=== PATIENT | male | born 1945 | race Two or more races ===

== ENCOUNTER 2017-08-13 12:15 | Inpatient (IN) | payer OTHER ==
[2017-08-13] VITALS (15 sets, daily range): BP systolic 107–149; BP diastolic 41–96
[~2017-08-13] VITALS: Ht 172.7 cm; Wt 74.8 kg
[2017-08-13 13:15] LABS: Basophils # (auto) 0.1 uL; Eosinophils # (auto) 0 uL; Lymphocytes # (auto) 1.4 uL; Monocytes # (auto) 0.4 uL; Neutrophils # (auto) 7.7 uL; Neutrophils % (auto) 80.3 % (37.0-80.0); White Blood Cell 9.6 10^3/uL (4.4-10.8)
[2017-08-13 13:16] LABS: Basophils % (auto) 0.6 % (0.0-2.0); Hematocrit 23.5 % (41.0-53.0); Hemoglobin 7.3 g/dL (13.5-17.5); Lymphocytes % (auto) 14.7 % (10.0-50.0); Mean Corpuscular Hemoglobin 23.1 pg (28.0-32.0); Mean Corpuscular Volume 74.4 fL (80.0-100.0); Monocytes % (auto) 4.4 % (0.0-12.0); Platelet Count (auto) 232 10^3/uL (140-450); Red Blood Cells 3.15 10^6/uL (4.5-5.90)
[2017-08-13 13:22] LABS: Red Cell Distribution Width 22.1 % (11.8-14.3)
[2017-08-13 13:37] LABS: Albumin 3.6 g/dL (3.4-5.0); BUN/Creatinine Ratio 43.5; Bilirubin, Total 0.2 mg/dL (0.2-1.0); Calcium 8.4 mg/dL (8.5-10.1); Potassium 4.8 mmol/L (3.5-5.1); Total Protein 7.9 g/dL (6.4-8.2)
[2017-08-13] MEDS ORDERED: SODIUM CHLORIDE 0.9% 1,000 ML IVB ONE (13:52)
[2017-08-13] MEDS ORDERED: PANTOPRAZOLE 40 MG/10 ML VIAL IV ONE (14:00)
[2017-08-13 14:14] LABS: Magnesium 1.8 mg/dL (1.6-2.6)
[2017-08-13 14:16] LABS: INR 1.05 (0.9-1.15); Prothrombin Time 11.4 sec (9.37-12.3)
[2017-08-13] MEDS ORDERED: DEXTROSE (50%) 50ML SYRG IV PRN (14:30)
[2017-08-13] MEDS ORDERED: LORazepam 0.5 MG TAB PO PRN (14:30)
[2017-08-13] MEDS ORDERED: MORPHINE SULFATE 10 MG/ML INJ 1ML SDV IV PRN (14:30)
[2017-08-13] MEDS ORDERED: SODIUM CHLORIDE 0.9% 1,000 ML IV ONE (14:30)
[2017-08-13] MEDS ORDERED: MORPHINE SULF INJ 2 MG/ML SYRINGE 1ML IV PRN (14:30)
[2017-08-13] MEDS ORDERED: PROMETHAZINE HCL 25 MG/ML 1ML IV PRN (14:30)
[2017-08-13] MEDS ORDERED: NITROGLYCERIN 0.4 MG SL TAB SL PRN (14:30)
[2017-08-13 14:37] LABS: Hematocrit 23.5 % (41.0-53.0); Hemoglobin 7.2 g/dL (13.5-17.5)
[2017-08-13 14:51] LABS: Urine Bacteria NONE SEEN /hpf (None Seen); Urine Blood Negative /uL (Negative); Urine Specific Gravity 1.017 (1.001-1.035); Urine WBC 13 /hpf (0 - 3)
[2017-08-13] MEDS: ACCU-CHEK COMFORT CURVE STRIP VI SCH (18:32)
[2017-08-13] MEDS: InsuLIN REG 1unit/0.01ml Soln (100units/ml) SC SCH (18:32)
[2017-08-13] MEDS: SODIUM CHLORIDE 0.9% 1,000 ML IV SCH ×2 (18:47→22:35)
[2017-08-13] MEDS: metroNIDAZOLE 500MG/100ML 100 ML IV SCH (22:00)
[2017-08-13] MEDS ORDERED: PANTOPRAZOLE 40 MG/10 ML VIAL IV SCH (22:00)
[2017-08-13] MEDS: MORPHINE SULFATE 4 MG/ML SYR/VIAL IV PRN (22:36)
[2017-08-14] MEDS: ACCU-CHEK COMFORT CURVE STRIP VI SCH ×3 (00:23→12:27)
[2017-08-14 00:28] VITALS: BP 120/66
[2017-08-14 02:03] LABS: Hematocrit 30.9 % (41.0-53.0); Hemoglobin 9.8 g/dL (13.5-17.5)
[2017-08-14 05:44] LABS: Basophils # (auto) 0.1 uL; Eosinophils # (auto) 0.1 uL; Hemoglobin 10.2 g/dL (13.5-17.5); Neutrophils # (auto) 8.7 uL
[2017-08-14 05:49] LABS: Basophils % (auto) 0.8 % (0.0-2.0); Eosinophils % (auto) 0.5 % (0.0-7.0); Hematocrit 30.6 % (41.0-53.0); Lymphocytes # (auto) 1.4 uL; Lymphocytes % (auto) 12.7 % (10.0-50.0); Mean Corpuscular Hemoglobin 27.3 pg (28.0-32.0); Mean Corpuscular Hgb Conc. 33.4 g/dL (32.0-36.0); Mean Corpuscular Volume 81.7 fL (80.0-100.0); Monocytes # (auto) 0.7 uL; Monocytes % (auto) 6.3 % (0.0-12.0); Neutrophils % (auto) 79.7 % (37.0-80.0); Platelet Count (auto) 153 10^3/uL (140-450); Red Blood Cells 3.74 10^6/uL (4.5-5.90); White Blood Cell 10.9 10^3/uL (4.4-10.8)
[2017-08-14 06:02] LABS: Red Cell Distribution Width 20.9 % (11.8-14.3)
[2017-08-14] MEDS: metroNIDAZOLE 500MG/100ML 100 ML IV SCH (06:04)
[2017-08-14 06:15] LABS: Albumin 3.1 g/dL (3.4-5.0); BUN/Creatinine Ratio 41.1; Bilirubin, Total 0.7 mg/dL (0.2-1.0); Calcium 7.7 mg/dL (8.5-10.1); Total Protein 6.7 g/dL (6.4-8.2)
[2017-08-14] MEDS: MORPHINE SULFATE 4 MG/ML SYR/VIAL IV PRN (06:20)
[2017-08-14] MEDS: InsuLIN REG 1unit/0.01ml Soln (100units/ml) SC SCH ×3 (06:37→12:00)
[2017-08-14] MEDS: SODIUM CHLORIDE 0.9% 1,000 ML IV SCH (07:39)
[2017-08-14] MEDS ORDERED: SODIUM CHLORIDE LOCK 10 ML ONE (08:27)
[2017-08-14] MEDS ORDERED: EPINEPHrine HCL 1 MG/10 ML SYRG ONE (08:27)
[2017-08-14] MEDS ORDERED: diphenhdrAMINE HCL 50 MG/1 ML VL ONE (08:28)
[2017-08-14] MEDS ORDERED: BENZOCAINE (DENTAL) 20 % SPRAY 60ML MT ONE (08:29)
[2017-08-14] MEDS: fentaNYL CITRATE 100 MCG/2 ML VL ONE ×2 (09:12→09:16)
[2017-08-14] MEDS: MIDAZOLAM HCL 5 MG/ML-1ML VIAL ONE ×2 (09:12→09:16)
[2017-08-14] MEDS ORDERED: LEVOFLOXACIN 500MG 100 ML IV SCH (10:00)
[2017-08-14] MEDS ORDERED: PANTOPRAZOLE 40 MG TAB PO SCH (10:00)
[2017-08-14] MEDS ORDERED: PANTOPRAZOLE 40 MG/10 ML VIAL IV SCH (10:00)
[2017-08-14] MEDS ORDERED: LIDOCAINE VISCOUS 2% 15ML UD ONE (10:41)
[2017-08-14 10:55] VITALS: BP 123/76
[2017-08-14 11:01] VITALS: BP 126/72
[2017-08-14] MEDS ORDERED: MORPHINE SULFATE 4 MG/ML SYR/VIAL IV PRN ×2 (19:45)
== END 2017-08-14 13:44 | disposition home or self-care (01) | DRG 377 ==
LOC: EDBD 12:15 → ER 12:15 → OVERFLOW 12:16
PROVIDERS: ADMIT Internal Medicine; ATTEND Internal Medicine Geriatric Medicine
PROC: 30233N1 Transfusion of Nonautologous Red Blood Cells into Peripheral Vein, Percutaneous Approach (ICD-10-PCS; 2017-08-13)
PROC: 0DB68ZX Excision of Stomach, Via Natural or Artificial Opening Endoscopic, Diagnostic (ICD-10-PCS; principal; 2017-08-14 09:08)
DX: K25.4 Chronic or unspecified gastric ulcer with hemorrhage (principal); N17.0 Acute kidney failure with tubular necrosis; D62 Acute posthemorrhagic anemia; E11.9 Type 2 diabetes mellitus without complications; I10 Essential (primary) hypertension; N40.0 Benign prostatic hyperplasia without lower urinary tract symptoms; F41.9 Anxiety disorder, unspecified; I70.0 Atherosclerosis of aorta; K57.30 Diverticulosis of large intestine without perforation or abscess without bleeding; Z82.49 Family history of ischemic heart disease and other diseases of the circulatory system; Z90.49 Acquired absence of other specified parts of digestive tract
CPT/HCPCS: 36415; 43239; 71045; 74176; 80053; 81001; 82150; 82962; 83036; 83690; 83735; 85014; 85018; 85025; 85045; 85610; 85730; 86850; 86900; 86901; 86920; 93005; 94761; 96360; 96361; C9113; G0378; J1956; J2250; J3490

== ENCOUNTER 2022-12-05 17:00 | Inpatient (IN) | payer OTHER ==
[~2022-12-05] VITALS: Ht 180.3 cm; Wt 143.2 kg
[2022-12-05 18:08] LABS: Eosinophils # (auto) 0.1 10 ^3/uL (0-0.8); Eosinophils % (auto) 1.1 % (0.0-7.0); Hemoglobin 9.7 g/dL (13.5-17.5); Lymphocytes # (auto) 1.4 10 ^3/uL (0.4-5.4); Monocytes # (auto) 0.5 10 ^3/uL (0-1.3); Red Cell Distribution Width 18.8 % (11.8-14.3)
[2022-12-05 18:10] LABS: Basophils # (auto) 0.1 10 ^3/uL (0-0.2); Basophils % (auto) 1.5 % (0.0-2.0); Hematocrit 30.9 % (41.0-53.0); Lymphocytes % (auto) 17.9 % (10.0-50.0); Mean Corpuscular Hgb Conc. 31.6 g/dL (32.0-36.0); Mean Corpuscular Volume 79.2 fL (80.0-100.0); Monocytes % (auto) 6.4 % (0.0-12.0); Neutrophils # (auto) 5.6 10 ^3/uL (1.6-8.6); Neutrophils % (auto) 73.1 % (37.0-80.0); White Blood Cell 7.7 10^3/uL (4.4-10.8)
[2022-12-05] MEDS ORDERED: ADENOSINE 6 MG/2 ML INJ IV ONE ×4 (18:21→18:30)
[2022-12-05 18:33] LABS: Calcium 8.3 mg/dL (8.5-10.1); Potassium 4.7 mmol/L (3.5-5.1)
[2022-12-05 18:38] LABS: Albumin 3.4 g/dL (3.4-5.0); BUN/Creatinine Ratio 7.4 (10.0-20.0); Bilirubin, Total 0.4 mg/dL (0.2-1.0); Magnesium 1.9 mg/dL (1.6-2.6); Total Protein 7.5 g/dL (6.4-8.2)
[2022-12-05] MEDS ORDERED: dilTIAZem 125mg/125ml BAG KIT 100 ML IV SCH (18:45)
[2022-12-05] MEDS ORDERED: fentaNYL CITRATE 100 MCG/2 ML VL IV ONE (19:15)
[2022-12-05] MEDS ORDERED: DOCUSATE SOD 100 MG CAP PO PRN (21:30)
[2022-12-05] MEDS ORDERED: ONDANSETRON HCL 4 MG/2 ML VIAL IV PRN (21:30)
[2022-12-05] MEDS ORDERED: IBUPROFEN 600 MG TAB PO PRN (21:30)
[2022-12-05] MEDS ORDERED: DEXTROSE (50%) 50ML SYRG IV PRN (21:30)
[2022-12-05] MEDS: InsuLIN REG 1unit/0.01ml Soln (100units/ml) SC SCH (22:00)
[2022-12-05] MEDS: ACCU-CHEK COMFORT CURVE STRIP VI SCH (22:00)
[2022-12-05] MEDS: METOPROLOL TARTRATE 25 MG TAB PO SCH (23:03)
[2022-12-05] MEDS: HEPARIN SODIUM (PORCINE) 5000 UNITS/ML 1ML VIAL SC SCH (23:05)
[2022-12-05] MEDS: SODIUM CHLORIDE 0.9% 1,000 ML IV SCH (23:10)
[2022-12-05] MEDS ORDERED: NITROGLYCERIN 0.4 MG SL TAB SL PRN (23:15)
[2022-12-05] MEDS ORDERED: MORPHINE SULFATE INJ 2 MG/ml SYRG IV PRN (23:15)
[2022-12-05] MEDS ORDERED: AZITHROMYCIN 500MG/ 250ML 250 ML IV ONE (23:15)
[2022-12-06] VITALS (28 sets, daily range): BP systolic 64–151; BP diastolic 33–113
[2022-12-06 01:18] LABS: BUN/Creatinine Ratio 9.1 (10.0-20.0); Potassium 4.6 mmol/L (3.5-5.1)
[2022-12-06] MEDS ORDERED: TEMAZEPAM 15 MG CAP PO PRN (01:45)
[2022-12-06] MEDS ORDERED: CALCIUM GLUC 1,000mg/50ml-NS 50 ML IV ONE (03:15)
[2022-12-06] MEDS ORDERED: SODIUM CHLORIDE 0.9% 1,000 ML IV ONE ×2 (03:30→11:00)
[2022-12-06] MEDS ORDERED: IOHEXOL 350 MG/ML 100ML IJ ONE (03:55)
[2022-12-06] MEDS ORDERED: NOREPINEPHRINE 8 MG/250ML KIT 250 ML IV SCH (04:45)
[2022-12-06] MEDS: SODIUM CHLORIDE 0.9% 1,000 ML IV SCH ×2 (04:50→23:21)
[2022-12-06] MEDS: HYDROcodone-ACET 5/325MG TAB PO PRN ×2 (05:53→21:45)
[2022-12-06 06:00] LABS: Urine Bacteria FEW /hpf (None Seen); Urine Blood Negative /uL (Negative); Urine Mucus FEW (None Seen); Urine Specific Gravity 1.019 (1.001-1.035); Urine WBC 1 /hpf (0 - 3)
[2022-12-06 06:11] LABS: Alcohol, Urine < 3.0 mg/dL (0-10); Amphetamine Screen, Urine NEGATIVE (NEGATIVE); Barbiturate Scree,Urine NEGATIVE (NEGATIVE); Benzodiazephine Screen, Urine NEGATIVE (NEGATIVE); Cannabinoid Screen, Urine NEGATIVE (NEGATIVE); Cocaine Screen, Urine NEGATIVE (NEGATIVE); Phencyclidine Screen, Urine NEGATIVE (NEGATIVE)
[2022-12-06 06:19] LABS: Opiate Scree,Urine POSITIVE (NEGATIVE)
[2022-12-06 06:27] LABS: Calcium 7.3 mg/dL (8.5-10.1)
[2022-12-06 06:33] LABS: Albumin 2.8 g/dL (3.4-5.0); BUN/Creatinine Ratio 7.6 (10.0-20.0); Bilirubin, Total 0.7 mg/dL (0.2-1.0); Total Protein 6.5 g/dL (6.4-8.2)
[2022-12-06 06:45] LABS: Potassium 6.1 mmol/L (3.5-5.1)
[2022-12-06 07:18] LABS: Basophils # (auto) 0.1 10 ^3/uL (0-0.2); Eosinophils # (auto) 0 10 ^3/uL (0-0.8); Hemoglobin 8.8 g/dL (13.5-17.5); Monocytes # (auto) 0.8 10 ^3/uL (0-1.3); Nucleated Red Blood Cells % 0.1 %
[2022-12-06 07:20] LABS: Basophils % (auto) 0.5 % (0.0-2.0); Hematocrit 29.1 % (41.0-53.0); Lymphocytes % (auto) 18.8 % (10.0-50.0); Mean Corpuscular Hemoglobin 25.7 pg (28.0-32.0); Mean Corpuscular Hgb Conc. 30.4 g/dL (32.0-36.0); Mean Corpuscular Volume 84.4 fL (80.0-100.0); Monocytes % (auto) 7.8 % (0.0-12.0); Neutrophils # (auto) 7.8 10 ^3/uL (1.6-8.6); Neutrophils % (auto) 72.9 % (37.0-80.0); Red Blood Cells 3.45 10^6/uL (4.5-5.90); Red Cell Distribution Width 19.5 % (11.8-14.3); White Blood Cell 10.7 10^3/uL (4.4-10.8)
[2022-12-06] MEDS: InsuLIN REG 1unit/0.01ml Soln (100units/ml) SC SCH ×4 (07:20→21:58)
[2022-12-06] MEDS: ACCU-CHEK COMFORT CURVE STRIP VI SCH ×4 (07:20→21:56)
[2022-12-06 09:52] LABS: Basophils # (auto) 0.1 10 ^3/uL (0-0.2); Eosinophils # (auto) 0 10 ^3/uL (0-0.8); Eosinophils % (auto) 0.1 % (0.0-7.0); Hemoglobin 8.9 g/dL (13.5-17.5); Lymphocytes # (auto) 1.3 10 ^3/uL (0.4-5.4); Monocytes # (auto) 0.6 10 ^3/uL (0-1.3)
[2022-12-06 09:54] LABS: Basophils % (auto) 0.6 % (0.0-2.0); Hematocrit 29.7 % (41.0-53.0); Lymphocytes % (auto) 13.2 % (10.0-50.0); Mean Corpuscular Hemoglobin 25.4 pg (28.0-32.0); Mean Corpuscular Volume 84.7 fL (80.0-100.0); Neutrophils # (auto) 7.6 10 ^3/uL (1.6-8.6); Neutrophils % (auto) 80.1 % (37.0-80.0); Nucleated Red Blood Cells % 0.1 %; White Blood Cell 9.5 10^3/uL (4.4-10.8)
[2022-12-06 10:04] LABS: Albumin 2.9 g/dL (3.4-5.0); BUN/Creatinine Ratio 7.3 (10.0-20.0); Bilirubin, Total 0.7 mg/dL (0.2-1.0); Calcium 6.9 mg/dL (8.5-10.1); Total Protein 6.9 g/dL (6.4-8.2)
[2022-12-06 10:05] LABS: Red Cell Distribution Width 20.1 % (11.8-14.3)
[2022-12-06 10:11] LABS: Potassium 6.5 mmol/L (3.5-5.1)
[2022-12-06] MEDS: AZITHROMYCIN 500MG/ 250ML 250 ML IV SCH (10:15)
[2022-12-06] MEDS: METOPROLOL TARTRATE 25 MG TAB PO SCH (10:16)
[2022-12-06] MEDS: FAMOTIDINE (10MG/ML) 2ML VL IV SCH (10:16)
[2022-12-06] MEDS: HEPARIN SODIUM (PORCINE) 5000 UNITS/ML 1ML VIAL SC SCH ×2 (10:20→21:55)
[2022-12-06] MEDS ORDERED: ASPirin 81 mg TAB PO ONE (10:45)
[2022-12-06] MEDS ORDERED: AMIODARONE HCL 150 MG in D5W 5% 100 ML IV ONE (10:45)
[2022-12-06] MEDS ORDERED: InsuLIN REG 1unit/0.01ml Soln (100units/ml) IV ONE (10:45)
[2022-12-06] MEDS ORDERED: ALBUTEROL SULF 2.5 MG/0.5ML(0.5%) NEB SOLN NEB ONE (10:45)
[2022-12-06] MEDS ORDERED: DEXTROSE (50%) 50ML SYRG IV ONE (10:45)
[2022-12-06] MEDS ORDERED: SODIUM BICARBONATE 8.4% INJ 50ML SYRINGE IV ONE (10:45)
[2022-12-06] MEDS ORDERED: AMIODARONE 450mg/250ml AE 250 ML IV SCH (11:00)
[2022-12-06] MEDS ORDERED: DEXTROSE 10% 250 ML Bag IV ONE (11:30)
[2022-12-06] MEDS: SODIUM CHLORIDE 0.9% 1,000 ML IV ONE ×2 (11:37→11:50)
[2022-12-06] MEDS: SODIUM ZIRCONIUM CYCL 10 GM PAK PO SCH ×3 (11:51→21:42)
[2022-12-06 12:33] LABS: Magnesium 1.8 mg/dL (1.6-2.6)
[2022-12-06] MEDS ORDERED: NOREPINEPHRINE 8 MG/250ML KIT 250 ML IV ONE (13:24)
[2022-12-06] MEDS: NOREPINEPHRINE 8 MG/250ML KIT 250 ML IV SCH (13:31)
[2022-12-06] MEDS ORDERED: MAGNESIUM SULFATE 1GM/100ML 100 ML IV ONE (13:45)
[2022-12-06 15:11] LABS: Calcium 7.2 mg/dL (8.5-10.1)
[2022-12-06] MEDS: AMIODARONE 450mg/250ml AE 250 ML IV SCH ×2 (17:47→23:19)
[2022-12-06] MEDS ORDERED: SUCR1SUS5 PO (18:09)
[2022-12-06] MEDS ORDERED: DOXA1TAB41 PO (18:09)
[2022-12-06] MEDS ORDERED: MELO7.5T7 PO (18:09)
[2022-12-06] MEDS ORDERED: LISI2.5T47 PO (18:09)
[2022-12-06] MEDS ORDERED: METF-370 PO (18:09)
[2022-12-06] MEDS ORDERED: GABA-339 PO (18:09)
[2022-12-06] MEDS ORDERED: DONE1TAB88 PO (18:09)
[2022-12-06] MEDS ORDERED: HALOPERIDOL LACTATE 5 MG/ML INJ VIAL IM PRN (20:00)
[2022-12-07] VITALS (41 sets, daily range): BP systolic 108–190; BP diastolic 43–133
[2022-12-07] MEDS: ACCU-CHEK COMFORT CURVE STRIP VI SCH ×4 (06:10→22:03)
[2022-12-07] MEDS: InsuLIN REG 1unit/0.01ml Soln (100units/ml) SC SCH ×4 (06:11→21:54)
[2022-12-07] MEDS: SODIUM ZIRCONIUM CYCL 10 GM PAK PO SCH (06:16)
[2022-12-07] MEDS: HYDROcodone-ACET 5/325MG TAB PO PRN ×3 (06:22→20:25)
[2022-12-07 07:08] LABS: Basophils # (auto) 0 10 ^3/uL (0-0.2); Eosinophils # (auto) 0 10 ^3/uL (0-0.8); Lymphocytes # (auto) 1.1 10 ^3/uL (0.4-5.4); Mean Corpuscular Hemoglobin 25.8 pg (28.0-32.0); Monocytes # (auto) 0.6 10 ^3/uL (0-1.3); Monocytes % (auto) 8.5 % (0.0-12.0); Nucleated Red Blood Cells % 0.2 %
[2022-12-07 07:11] LABS: Basophils % (auto) 0.4 % (0.0-2.0); Eosinophils % (auto) 0.7 % (0.0-7.0); Hematocrit 25.7 % (41.0-53.0); Lymphocytes % (auto) 16.4 % (10.0-50.0); Mean Corpuscular Hgb Conc. 31.1 g/dL (32.0-36.0); Mean Corpuscular Volume 82.9 fL (80.0-100.0); Neutrophils # (auto) 5.1 10 ^3/uL (1.6-8.6); Red Cell Distribution Width 19.8 % (11.8-14.3); White Blood Cell 6.9 10^3/uL (4.4-10.8)
[2022-12-07 07:49] LABS: BUN/Creatinine Ratio 11.8 (10.0-20.0); Potassium 4.6 mmol/L (3.5-5.1)
[2022-12-07 07:50] LABS: Albumin 2.7 g/dL (3.4-5.0); Bilirubin, Total 0.8 mg/dL (0.2-1.0); Total Protein 6.3 g/dL (6.4-8.2)
[2022-12-07] MEDS ORDERED: SODIUM CHLORIDE 0.9% 500 ML IV ONE (09:00)
[2022-12-07] MEDS ORDERED: DIGOXIN (250MCG/ML) 2 ML AMPULE IV ONE (09:00)
[2022-12-07] MEDS: AZITHROMYCIN 500MG/ 250ML 250 ML IV SCH (09:34)
[2022-12-07] MEDS: FAMOTIDINE (10MG/ML) 2ML VL IV SCH (09:34)
[2022-12-07] MEDS: ASPirin 81 mg TAB PO SCH (09:35)
[2022-12-07] MEDS: HEPARIN SODIUM (PORCINE) 5000 UNITS/ML 1ML VIAL SC SCH ×2 (09:37→21:54)
[2022-12-07] MEDS ORDERED: DIGOXIN 0.25 MG TAB PO ONE (09:45)
[2022-12-07] MEDS: NOREPINEPHRINE 8 MG/250ML KIT 250 ML IV SCH (13:30)
[2022-12-07] MEDS: AMIODARONE 450mg/250ml AE 250 ML IV SCH (16:33)
[2022-12-08] VITALS (42 sets, daily range): BP systolic 96–171; BP diastolic 43–95
[2022-12-08] MEDS: HYDROcodone-ACET 5/325MG TAB PO PRN ×3 (02:56→18:54)
[2022-12-08 04:07] LABS: Calcium 7.3 mg/dL (8.5-10.1); Potassium 4.6 mmol/L (3.5-5.1)
[2022-12-08 04:11] LABS: BUN/Creatinine Ratio 14.1 (10.0-20.0)
[2022-12-08] MEDS: ACCU-CHEK COMFORT CURVE STRIP VI SCH ×4 (06:19→21:17)
[2022-12-08] MEDS: InsuLIN REG 1unit/0.01ml Soln (100units/ml) SC SCH ×4 (06:20→21:26)
[2022-12-08] MEDS: SODIUM CHLORIDE 0.9% 1,000 ML IV SCH (06:24)
[2022-12-08] MEDS: AZITHROMYCIN 500MG/ 250ML 250 ML IV SCH (08:39)
[2022-12-08] MEDS: ASPirin 81 mg TAB PO SCH (08:39)
[2022-12-08] MEDS: SODIUM ZIRCONIUM CYCL 10 GM PAK PO SCH ×2 (08:41→10:00)
[2022-12-08] MEDS: FAMOTIDINE (10MG/ML) 2ML VL IV SCH (08:41)
[2022-12-08] MEDS: HEPARIN SODIUM (PORCINE) 5000 UNITS/ML 1ML VIAL SC SCH ×2 (08:56→21:15)
[2022-12-08 12:18] LABS: % Iron Saturation 8.4 % (20-55)
[2022-12-08] MEDS: GABAPENTIN 300 MG CAP PO SCH ×2 (12:26→21:16)
[2022-12-08] MEDS: METOPROLOL TARTRATE 25 MG TAB PO SCH ×2 (12:27→21:17)
[2022-12-08] MEDS: NOREPINEPHRINE 8 MG/250ML KIT 250 ML IV SCH (13:30)
[2022-12-08] MEDS: AMIODARONE 450mg/250ml AE 250 ML IV SCH (14:00)
[2022-12-08] MEDS: FERROUS SULFATE 325mg EC TAB PO SCH (18:50)
[2022-12-08] MEDS: DONEPEZIL HYDROCHLORIDE 5 MG TAB PO SCH (21:16)
[2022-12-08] MEDS: DOXAZOSIN MESYL 2 MG TAB PO SCH (21:16)
[2022-12-09] VITALS (43 sets, daily range): BP systolic 99–143; BP diastolic 41–71
[2022-12-09] MEDS: AMIODARONE 450mg/250ml AE 250 ML IV SCH (00:02)
[2022-12-09 04:52] LABS: BUN/Creatinine Ratio 18.4 (10.0-20.0); Calcium 7.6 mg/dL (8.5-10.1); Potassium 4.2 mmol/L (3.5-5.1)
[2022-12-09] MEDS: GABAPENTIN 300 MG CAP PO SCH ×3 (06:03→21:49)
[2022-12-09] MEDS: ACCU-CHEK COMFORT CURVE STRIP VI SCH ×4 (06:03→21:59)
[2022-12-09] MEDS: InsuLIN REG 1unit/0.01ml Soln (100units/ml) SC SCH ×4 (06:05→21:59)
[2022-12-09] MEDS: SODIUM ZIRCONIUM CYCL 10 GM PAK PO SCH (09:46)
[2022-12-09] MEDS: AZITHROMYCIN 500MG/ 250ML 250 ML IV SCH (09:47)
[2022-12-09] MEDS: FAMOTIDINE (10MG/ML) 2ML VL IV SCH (09:47)
[2022-12-09] MEDS: FERROUS SULFATE 325mg EC TAB PO SCH ×2 (09:47→17:13)
[2022-12-09] MEDS: ASPirin 81 mg TAB PO SCH (09:47)
[2022-12-09] MEDS: METOPROLOL TARTRATE 25 MG TAB PO SCH ×2 (09:47→22:00)
[2022-12-09] MEDS: HEPARIN SODIUM (PORCINE) 5000 UNITS/ML 1ML VIAL SC SCH ×2 (09:48→21:59)
[2022-12-09] MEDS: HYDROcodone-ACET 5/325MG TAB PO PRN ×3 (09:59→21:51)
[2022-12-09] MEDS: NOREPINEPHRINE 8 MG/250ML KIT 250 ML IV SCH (13:30)
[2022-12-09] MEDS ORDERED: AMIODARONE HCL 200 MG TAB PO ONE (17:30)
[2022-12-09] MEDS: DONEPEZIL HYDROCHLORIDE 5 MG TAB PO SCH (21:49)
[2022-12-09] MEDS: AMIODARONE HCL 200 MG TAB PO SCH (21:49)
[2022-12-09] MEDS: DOXAZOSIN MESYL 2 MG TAB PO SCH (21:49)
[2022-12-10] VITALS (22 sets, daily range): BP systolic 119–159; BP diastolic 25–108
[2022-12-10 04:31] LABS: Eosinophils # (auto) 0.1 10 ^3/uL (0-0.8); Hematocrit 24.7 % (41.0-53.0); Lymphocytes # (auto) 0.9 10 ^3/uL (0.4-5.4)
[2022-12-10 04:33] LABS: Basophils # (auto) 0.1 10 ^3/uL (0-0.2); Basophils % (auto) 1.2 % (0.0-2.0); Eosinophils % (auto) 2.6 % (0.0-7.0); Lymphocytes % (auto) 19.8 % (10.0-50.0); Mean Corpuscular Hemoglobin 26.1 pg (28.0-32.0); Mean Corpuscular Hgb Conc. 32.2 g/dL (32.0-36.0); Mean Corpuscular Volume 81.2 fL (80.0-100.0); Monocytes # (auto) 0.4 10 ^3/uL (0-1.3); Monocytes % (auto) 9.8 % (0.0-12.0); Neutrophils % (auto) 66.6 % (37.0-80.0); Nucleated Red Blood Cells % 0.2 %; Red Blood Cells 3.04 10^6/uL (4.5-5.90); White Blood Cell 4.5 10^3/uL (4.4-10.8)
[2022-12-10 04:34] LABS: Red Cell Distribution Width 20.3 % (11.8-14.3)
[2022-12-10] MEDS: InsuLIN REG 1unit/0.01ml Soln (100units/ml) SC SCH ×5 (06:02→22:00)
[2022-12-10] MEDS: ACCU-CHEK COMFORT CURVE STRIP VI SCH ×4 (06:02→22:00)
[2022-12-10] MEDS: GABAPENTIN 300 MG CAP PO SCH ×3 (06:02→22:24)
[2022-12-10] MEDS: HYDROcodone-ACET 5/325MG TAB PO PRN ×2 (10:29→22:25)
[2022-12-10 11:15] LABS: BUN/Creatinine Ratio 17.9 (10.0-20.0); Calcium 7.5 mg/dL (8.5-10.1); Potassium 3.9 mmol/L (3.5-5.1)
[2022-12-10] MEDS ORDERED: DIGOXIN 0.125 MG TAB PO ONE (11:15)
[2022-12-10] MEDS: HEPARIN SODIUM (PORCINE) 5000 UNITS/ML 1ML VIAL SC SCH ×2 (11:24→22:46)
[2022-12-10] MEDS: METOPROLOL TARTRATE 25 MG TAB PO SCH ×2 (11:25→22:25)
[2022-12-10] MEDS: ASPirin 81 mg TAB PO SCH (11:25)
[2022-12-10] MEDS: SODIUM ZIRCONIUM CYCL 10 GM PAK PO SCH (11:26)
[2022-12-10] MEDS: AZITHROMYCIN 500MG/ 250ML 250 ML IV SCH (11:26)
[2022-12-10] MEDS: FAMOTIDINE (10MG/ML) 2ML VL IV SCH (11:26)
[2022-12-10] MEDS: AMIODARONE HCL 200 MG TAB PO SCH ×2 (11:26→22:26)
[2022-12-10] MEDS: FERROUS SULFATE 325mg EC TAB PO SCH ×2 (11:26→18:42)
[2022-12-10] MEDS: NOREPINEPHRINE 8 MG/250ML KIT 250 ML IV SCH (13:30)
[2022-12-10] MEDS: DOXAZOSIN MESYL 2 MG TAB PO SCH (22:25)
[2022-12-10] MEDS: DONEPEZIL HYDROCHLORIDE 5 MG TAB PO SCH (22:25)
[2022-12-11] VITALS (22 sets, daily range): BP systolic 102–142; BP diastolic 36–65
[2022-12-11 05:10] LABS: BUN/Creatinine Ratio 19.6 (10.0-20.0); Potassium 3.4 mmol/L (3.5-5.1)
[2022-12-11] MEDS: GABAPENTIN 300 MG CAP PO SCH ×3 (05:35→21:58)
[2022-12-11] MEDS: ACCU-CHEK COMFORT CURVE STRIP VI SCH ×4 (05:35→21:59)
[2022-12-11] MEDS: InsuLIN REG 1unit/0.01ml Soln (100units/ml) SC SCH ×4 (05:35→21:59)
[2022-12-11] MEDS: METOPROLOL TARTRATE 25 MG TAB PO SCH ×2 (09:28→21:58)
[2022-12-11] MEDS: FAMOTIDINE (10MG/ML) 2ML VL IV SCH (09:28)
[2022-12-11] MEDS: ASPirin 81 mg TAB PO SCH (09:28)
[2022-12-11] MEDS: DIGOXIN 0.125 MG TAB PO SCH (09:29)
[2022-12-11] MEDS: AMIODARONE HCL 200 MG TAB PO SCH ×2 (09:29→21:58)
[2022-12-11] MEDS: FERROUS SULFATE 325mg EC TAB PO SCH ×2 (09:29→18:06)
[2022-12-11] MEDS: AZITHROMYCIN 500MG/ 250ML 250 ML IV SCH (09:30)
[2022-12-11] MEDS: HEPARIN SODIUM (PORCINE) 5000 UNITS/ML 1ML VIAL SC SCH ×2 (10:06→22:18)
[2022-12-11] MEDS ORDERED: POTASSIUM CHL 20 Meq TABLET PO ONE (11:15)
[2022-12-11] MEDS: HYDROcodone-ACET 5/325MG TAB PO PRN ×3 (14:20→22:00)
[2022-12-11] MEDS: DOXAZOSIN MESYL 2 MG TAB PO SCH (21:57)
[2022-12-11] MEDS: DONEPEZIL HYDROCHLORIDE 5 MG TAB PO SCH (21:58)
[2022-12-12] VITALS (8 sets, daily range): BP systolic 94–139; BP diastolic 54–70
[2022-12-12] MEDS: GABAPENTIN 300 MG CAP PO SCH ×3 (06:14→21:34)
[2022-12-12] MEDS: ACCU-CHEK COMFORT CURVE STRIP VI SCH ×4 (06:24→21:51)
[2022-12-12] MEDS: InsuLIN REG 1unit/0.01ml Soln (100units/ml) SC SCH ×4 (06:24→21:50)
[2022-12-12 06:34] LABS: Calcium 7.7 mg/dL (8.5-10.1); Potassium 3.5 mmol/L (3.5-5.1)
[2022-12-12 06:36] LABS: BUN/Creatinine Ratio 15.8 (10.0-20.0)
[2022-12-12] MEDS: FERROUS SULFATE 325mg EC TAB PO SCH ×2 (08:14→18:32)
[2022-12-12] MEDS: HYDROcodone-ACET 5/325MG TAB PO PRN ×2 (08:14→20:13)
[2022-12-12] MEDS: HEPARIN SODIUM (PORCINE) 5000 UNITS/ML 1ML VIAL SC SCH ×2 (09:55→21:50)
[2022-12-12] MEDS: FAMOTIDINE (10MG/ML) 2ML VL IV SCH (09:56)
[2022-12-12] MEDS: METOPROLOL TARTRATE 25 MG TAB PO SCH ×2 (09:56→21:36)
[2022-12-12] MEDS: ASPirin 81 mg TAB PO SCH (09:56)
[2022-12-12] MEDS: DIGOXIN 0.125 MG TAB PO SCH (09:56)
[2022-12-12] MEDS: AMIODARONE HCL 200 MG TAB PO SCH ×2 (09:57→21:36)
[2022-12-12 10:15] LABS: Basophils # (auto) 0 10 ^3/uL (0-0.2); Eosinophils # (auto) 0.2 10 ^3/uL (0-0.8); Lymphocytes # (auto) 0.9 10 ^3/uL (0.4-5.4); Monocytes # (auto) 0.4 10 ^3/uL (0-1.3); Nucleated Red Blood Cells % 0.6 %; White Blood Cell 4.5 10^3/uL (4.4-10.8)
[2022-12-12 10:17] LABS: Eosinophils % (auto) 3.7 % (0.0-7.0); Hematocrit 26.9 % (41.0-53.0); Hemoglobin 8.2 g/dL (13.5-17.5); Lymphocytes % (auto) 20.9 % (10.0-50.0); Mean Corpuscular Hemoglobin 25.6 pg (28.0-32.0); Mean Corpuscular Hgb Conc. 30.4 g/dL (32.0-36.0); Mean Corpuscular Volume 84.4 fL (80.0-100.0); Monocytes % (auto) 8.9 % (0.0-12.0); Neutrophils # (auto) 2.9 10 ^3/uL (1.6-8.6); Neutrophils % (auto) 65.5 % (37.0-80.0); Red Blood Cells 3.19 10^6/uL (4.5-5.90)
[2022-12-12] MEDS: DONEPEZIL HYDROCHLORIDE 5 MG TAB PO SCH (21:34)
[2022-12-12] MEDS: DOXAZOSIN MESYL 2 MG TAB PO SCH (21:35)
[2022-12-13] MEDS: GABAPENTIN 300 MG CAP PO SCH ×2 (05:42→15:05)
[2022-12-13] MEDS: InsuLIN REG 1unit/0.01ml Soln (100units/ml) SC SCH ×3 (05:44→19:04)
[2022-12-13] MEDS: ACCU-CHEK COMFORT CURVE STRIP VI SCH ×3 (05:45→19:03)
[2022-12-13 08:00] VITALS: BP 109/45
[2022-12-13] MEDS ORDERED: HEPARIN SODIUM (PORCINE) 5000 UNITS/ML 1ML VIAL ONE (09:25)
[2022-12-13] MEDS ORDERED: METO25TA5 PO (09:43)
[2022-12-13] MEDS ORDERED: AMIO200T33 PO (09:43)
[2022-12-13] MEDS ORDERED: DIGO0.12 PO (09:43)
[2022-12-13] MEDS: METOPROLOL TARTRATE 25 MG TAB PO SCH (09:44)
[2022-12-13] MEDS: ASPirin 81 mg TAB PO SCH (09:45)
[2022-12-13] MEDS: DIGOXIN 0.125 MG TAB PO SCH (09:45)
[2022-12-13] MEDS: FERROUS SULFATE 325mg EC TAB PO SCH ×2 (09:45→18:20)
[2022-12-13] MEDS: FAMOTIDINE (10MG/ML) 2ML VL IV SCH (09:46)
[2022-12-13] MEDS: AMIODARONE HCL 200 MG TAB PO SCH (09:46)
[2022-12-13] MEDS: HEPARIN SODIUM (PORCINE) 5000 UNITS/ML 1ML VIAL SC SCH (10:06)
[2022-12-13 12:00] VITALS: BP 148/56
[2022-12-13 16:00] VITALS: BP 145/72
[2022-12-13 21:25] VITALS: BP 135/60
== END 2022-12-13 22:00 | disposition home health service (06) | DRG 562 ==
LOC: ER 17:00 → TELE 23:21 → ICU WEST 12-06 15:02 → TELE-CENTR 12-12 11:52
PROVIDERS: ADMIT Nurse Practitioner Family; ATTEND Internal Medicine Geriatric Medicine
DX: S42.351A Displaced comminuted fracture of shaft of humerus, right arm, initial encounter for closed fracture (principal); N17.0 Acute kidney failure with tubular necrosis; I47.1 Supraventricular tachycardia; I13.0 Hypertensive heart and chronic kidney disease with heart failure and stage 1 through stage 4 chronic kidney disease, or unspecified chronic kidney disease; I50.22 Chronic systolic (congestive) heart failure; N18.30 Chronic kidney disease, stage 3 unspecified; E11.22 Type 2 diabetes mellitus with diabetic chronic kidney disease; E78.5 Hyperlipidemia, unspecified; E87.5 Hyperkalemia; E11.40 Type 2 diabetes mellitus with diabetic neuropathy, unspecified; F03.90 Unspecified dementia, unspecified severity, without behavioral disturbance, psychotic disturbance, mood disturbance, and anxiety; N40.0 Benign prostatic hyperplasia without lower urinary tract symptoms; Y93.01 Activity, walking, marching and hiking; G89.29 Other chronic pain; M54.9 Dorsalgia, unspecified; E11.65 Type 2 diabetes mellitus with hyperglycemia; D63.1 Anemia in chronic kidney disease; I48.91 Unspecified atrial fibrillation; W01.0XXA Fall on same level from slipping, tripping and stumbling without subsequent striking against object, initial encounter; Z87.11 Personal history of peptic ulcer disease; Z79.84 Long term (current) use of oral hypoglycemic drugs; Y93.89 Activity, other specified; Y92.89 Other specified places as the place of occurrence of the external cause; Y99.8 Other external cause status
CPT/HCPCS: 36415; 71045; 71101; 71275; 73030; 73060; 73070; 80048; 80053; 80061; 80162; 80307; 81001; 82270; 82728; 82962; 83036; 83540; 83550; 83605; 83735; 83880; 84132; 84443; 84484; 85025; 85379; 86850; 86900; 86901; 87081; 93005; 93306; 93970; 94640; 96365; 96366; 96367; 96375; 97110; 97116; 97163; 97530; 99291; G0378; J0153; J1815; J2405; J3490; J7060

== ENCOUNTER 2024-09-23 14:02 | Emergency (ER) | payer OTHER ==
[~2024-09-23] VITALS: Ht 180.3 cm; Wt 70.7 kg
[~2024-09-23 14:02] MED LIST: AMIO200T33 PO; DIGO0.12 PO; DONE1TAB88 PO; DOXA1TAB41 PO; GABA-339 PO; LISI2.5T47 PO; MELO7.5T7 PO; METF-370 PO; METO25TA5 PO; SUCR1SUS5 PO
[2024-09-23 15:11] LABS: Urine Bacteria None Seen /hpf (None Seen)
[2024-09-23 15:22] LABS: Urine Blood Negative /uL (Negative); Urine Clarity Clear (Clear); Urine Color Light-Yellow (Yellow); Urine Protein, UAD Negative (Negative); Urine Squamous Epithelial Cell FEW /hpf (<5); Urine Urobilinogen Normal (Negative); Urine WBC 80 /HPF (0-3)
--- NOTE | 2024-09-23 15:47 | ED.PDOC ---
General HPI Comments 79 y/o M, with PMHX of HTN and DM presents to the ED for CC of urinary incontinence. Patient states, that he had blood work drawn about x2-3 months ago which showed he had a UTI; and received antibiotics. Patient endorses, completing antibiotics and developing uncontrolled urinary incontinence as a result. Patient comments on, seeing PCP to address symptoms and being prescribed various medications which provided no relief. Patient denies hematuria, penile discharge, fever, or scrotal swelling. No other symptoms or modifying factors at this time. Chief Complaint: Urinary Time Seen by MD: 15:30 Primary Care Provider: EVA Reviewed notes: Nurses Notes, Medications, Allergies Allergies: Coded Allergies: NO KNOWN ALLERGIES (Unverified , 07/08/16) Home Meds Active Scripts Metoprolol Tartrate (Metoprolol Tartrate) 25 Mg Tab, 1 TAB PO BID, #60 TAB 5 Refills Prov:MARK SMITH MD 12/13/22 Digoxin (Digoxin) 125 Mcg Tab, 125 MCG PO DAILY for 30 Days, #30 TAB Prov:MARK SMITH MD 12/13/22 Amiodarone Hcl (Amiodarone Hcl) 200 Mg Tab, 200 MG PO BID for 30 Days, #60 TAB Prov:MARK SMITH MD 12/13/22 Reported Medications Metformin Hydrochloride (Metformin Hcl) 500 Mg Tab, 600 MG PO DAILY for 30 Days, MG 12/06/22 Lisinopril (Lisinopril) 2.5 Mg Tab, 2.5 MG PO DAILY for 30 Days, MG 12/06/22 Donepezil Hydrochloride (DONEPEZIL HCL) 10 Mg Tab, 10 MG PO DAILY for 30 Days, MG 12/06/22 Gabapentin (Gabapentin) 600 Mg Tab, 600 MG PO for 30 Days, MG 12/06/22 Sucralfate (Carafate) 1 Gm/10 Ml [place], 10 ML PO BID, #120 ML 1 Refill 12/06/22 Doxazosin Mesylate (Doxazosin) 4 Mg Tab, 4 MG PO, TAB 12/06/22 Meloxicam (Meloxicam) 7.5 Mg Tab, 7.5 MG PO, TAB 12/06/22 Information Source: Patient Mode of Arrival: Ambulatory Inability to void: Moderate Timing: Months Duration: Since onset Prehospital treatment: None Onset: Spontaneous Symptoms: None History of: UTI Location: None Modifying factors: None associated signs and symptoms: None Past Medical History PAST MEDICAL HISTORY: DM, HTN Family History Family History: No family hx of HTN Social History Smoker: Non-Smoker Alcohol: Occasionally Drugs: Denies Drug Use Lives In: Home Constitutional: denies: chills, diaphoresis, fatigue, fever, malaise, sweats, weakness, others EENTM: denies: blurred vision, double vision, ear bleeding, ear discharge, ear drainage, ear pain, ear ringing, eye pain, eye redness, hearing loss, mouth pain, mouth swelling, nasal discharge, nose bleeding, nose congestion, nose pain, photophobia, tearing, throat pain, throat swelling, voice changes, others Respiratory: denies: cough, hemoptysis, orthopnea, SOB at rest, shortness of breath, SOB with excertion, stridor, wheezing, others Cardiovascular: denies: chest pain, dizzy spells, diaphoresis, Dyspnea on exertion, edema, irregular heart beat, left arm pain, lightheadedness, palpitations, PND, syncope, others Gastrointestinal: denies: abdomen distended, abdominal pain, blood streaked bowels, constipated, diarrhea, dysphagia, difficulty swallowing, hematemesis, melena, nausea, poor appetite, poor fluid intake, rectal bleeding, rectal pain, vomiting, others Genitourinary: reports: incontinence; denies: burning, dysuria, flank pain, frequency, hematuria, penile discharge, penile sore, pain, testicle pain, testicle swelling, urgency, others Neurological: denies: dizziness, fainting, headache, left sided numbness, left sided weakness, numbness, paresthesia, pre-existing deficit, right sided numbness, right sided weakness, seizure, speech problems, tingling, tremors, weakness, others Musculoskeletal: denies: back pain, gout, joint pain, joint swelling, muscle pain, muscle stiffness, neck pain, others Integumetry: denies: bruises, change in color, change in hair/nails, dryness, laceration, lesions, lumps, rash, wounds, others Allergic/Immunocompromised: denies: Difficulty Healing, Frequent Infections, Hives, Itching, others Hematologic/Lymphatic: denies: anemia, blood clots, easy bleeding, easy bruising, swollen glands, others Endocrine: denies: excessive hunger, excessive sweating, excessive thirst, excessive urination, flushing, intolerance to cold, intolerance to heat, unexplained weight gain, unexplained weight loss, others Psychiatric: denies: anxiety, bipolar disorder, depression, hopeless, panic disorder, schizophrenia, sleepless, suicidal, others All Other Systems: Reviewed and Negative Physical Exam General Appearance: No Apparent Distress, Normal HEENT: Normal ENT Inspection, Pharynx Normal Neck: Full Range of Motion, Non-Tender, Normal, Normal Inspection Respiratory: Chest Non-Tender, Lungs Clear, No Accessory Muscle Use, No Respiratory Distress, Normal Breath Sounds Cardiovascular: No Edema, No Murmur, No Gallop, Normal Peripheral Pulses, Regular Rate/Rhythm Breast Exam: Deferred Gastrointestinal: No Organomegaly, Non Tender, No Pulsatile Mass, Normal Bowel Sounds, Soft Genitalia: Deferred Pelvic: Deferred Rectal: Deferred Extremities: Non-tender, No pedal edema Musculoskeletal : Apperance: Normal 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 Was a procedure done?: No Differential Diagnosis Kidney stone (Female): Urinary obstruction, Urolithiasis Kidney stone (Male): Aortic dissection, Appendicitis train, DJD Penile/Scrotal: Epidiymitis, Prostatitis, STD, UTI, Fractured Penis, Phimosis Urinary Problem (Male): UTI X-Ray, Labs, Meds, VS Vital Signs Date Time Temp Pulse Resp B/P (MAP) Pulse Ox O2 Delivery O2 Flow Rate FiO2 09/23/24 14:54 98.2 114 18 111/56 (74) 97 Lab Test 09/23/24 16:00 09/23/24 14:52 Range/Units White Blood Count 3.8 L 4.4-10.8 10^3/uL Red Blood Count 4.23 L 4.5-5.90 10^6/uL Hemoglobin 13.1 L 13.5-17.5 g/dL Hematocrit 39.1 L 41.0-53.0 % Mean Corpuscular Volume 92.5 80.0-100.0 fL Mean Corpuscular Hemoglobin 31.1 28.0-32.0 pg Mean Corpuscular Hemoglobin Concent 33.6 32.0-36.0 g/dL Red Cell Distribution Width 14.4 H 11.8-14.3 % Platelet Count 146 140-450 10^3/uL Mean Platelet Volume 9.0 6.9-10.8 fL Neutrophils (%) (Auto) 53.0 37.0-80.0 % Lymphocytes (%) (Auto) 33.2 10.0-50.0 % Monocytes (%) (Auto) 10.3 0.0-12.0 % Eosinophils (%) (Auto) 2.6 0.0-7.0 % Basophils (%) (Auto) 0.9 0.0-2.0 % Neutrophils # (Auto) 2.0 1.6-8.6 10 ^3/uL Lymphocytes # (Auto) 1.3 0.4-5.4 10 ^3/uL Monocytes # (Auto) 0.4 0-1.3 10 ^3/uL Eosinophils # (Auto) 0.1 0-0.8 10 ^3/uL Basophils # (Auto) 0 0-0.2 10 ^3/uL Nucleated Red Blood Cells 0.3 % Sodium Level 142 136-145 mmol/L Potassium Level 4.2 3.5-5.1 mmol/L Chloride Level 106 98-107 mmol/L Carbon Dioxide Level 29 20-31 mmol/L Anion Gap 7 5-15 Blood Urea Nitrogen 15 9-23 mg/dL Creatinine 1.24 0.700-1.30 mg/dL Glomerular Filtration Rate Calc 59 >90 mL/min BUN/Creatinine Ratio 12.1 10.0-20.0 Serum Glucose 121 H 74-106 mg/dL Calcium Level 10.0 8.7-10.4 mg/dL Total Bilirubin 0.5 0.2-1.0 mg/dL Aspartate Amino Transferase (AST) 58 H 13-40 U/L Alanine Aminotransferase (ALT) 50 H 7-40 U/L Alkaline Phosphatase 74 46-116 U/L Total Protein 8.1 5.7-8.2 g/dL Albumin 4.2 3.2-4.8 g/dL Free Prostate Specific Antigen Pending Percent Free Prostate Specific Ag Pending Prostate Specific Antigen Total Pending Urine Color Light-yellow Yellow Urine Clarity Clear Clear Urine pH 6.0 5.0-9.0 Urine Specific [place] 1.010 1.001-1.035 Urine Protein Negative Negative Urine Ketones Negative Negative Urine Blood Negative Negative /uL Urine Nitrite 2+ H Negative Urine Bilirubin Negative Negative Urine Urobilinogen Normal Negative mg/dL Urine Leukocyte Esterase 3+ Negative /uL Urine RBC 1 0 - 3 /hpf Urine Microscopic WBC 80 H 0-3 /HPF Urine Squamous Epithelial Cells Few <5 /hpf Urine Bacteria None seen None Seen /hpf Urine Glucose Normal Normal mg/dL X-Ray, Labs, Meds, VS Comment This pleasant 79-year-old male presents secondary to continued here in incontinence and dysuria. He has been on previous rounds of antibiotics. Here, the patient noted to have nitrite positive urine and an enlarged prostate. Unfortunately, unable to do a digital rectal exam he was were unable to find a private location to tested. However, secondary to his age having certainly he may have prostatitis. He was given Zosyn in the ER and be discharged home with levofloxacin. He was asked to follow up with his PCP for referral to a urologist. He states his understanding. Time of 1ST Reevaluation: 16:00 Reevaluation 1ST: Unchanged Patient Education/Counseling: Diagnosis, Treatment Family Education/Counseling: No Family Present Departure 1 Departure Time of Disposition: 16:58 Impression: Primary Impression: Prostatitis Disposition: 01 HOME / SELF CARE / HOMELESS Condition: Good Discharged With: Self Critical Care Note Critical Care Time?: No Stability Stability form required: No Heart Score Heart Score: Heart Score Response (Comments) Value History N/A 0 EKG N/A 0 Age N/A 0 Risk Factors N/A 0 Troponin N/A 0 Total 0 I personally scribed for CELINE GUALLPA MD ([email or web address]) on 09/23/24 at 15:47. Electronically submitted by Anju Hollins ([email or web address]). CELINE UGALLPA MD Sep 23, 2024 15:47
[2024-09-23 16:22] LABS: Basophils # (auto) 0 10 ^3/uL (0-0.2); Basophils % (auto) 0.9 % (0.0-2.0); Eosinophils # (auto) 0.1 10 ^3/uL (0-0.8); Eosinophils % (auto) 2.6 % (0.0-7.0); Hematocrit 39.1 % (41.0-53.0); Hemoglobin 13.1 g/dL (13.5-17.5); Lymphocytes # (auto) 1.3 10 ^3/uL (0.4-5.4); Lymphocytes % (auto) 33.2 % (10.0-50.0); Mean Corpuscular Hemoglobin 31.1 pg (28.0-32.0); Mean Corpuscular Hgb Conc. 33.6 g/dL (32.0-36.0); Mean Corpuscular Volume 92.5 fL (80.0-100.0); Monocytes # (auto) 0.4 10 ^3/uL (0-1.3); Monocytes % (auto) 10.3 % (0.0-12.0); Nucleated Red Blood Cells % 0.3 %; Platelet Count (auto) 146 10^3/uL (140-450); Red Blood Cells 4.23 10^6/uL (4.5-5.90); Red Cell Distribution Width 14.4 % (11.8-14.3); White Blood Cell 3.8 10^3/uL (4.4-10.8)
[2024-09-23 16:37] LABS: Albumin 4.2 g/dL (3.2-4.8); Alkaline Phosphatase 74 U/L (46-116); Anion Gap 7 (5-15); BUN/Creatinine Ratio 12.1 (10.0-20.0); Bilirubin, Total 0.5 mg/dL (0.2-1.0); Blood Urea Nitrogen 15 mg/dL (9-23); Carbon Dioxide 29 mmol/L (20-31); Chloride 106 mmol/L (98-107); Potassium 4.2 mmol/L (3.5-5.1); Sodium 142 mmol/L (136-145); Total Protein 8.1 g/dL (5.7-8.2)
[2024-09-23 16:44] LABS: Alanine Aminotransferase 50 U/L (7-40); Aspartate Aminotransferase 58 U/L (13-40); Glucose 121 mg/dL (74-106)
[2024-09-23 16:59] VITALS: BP 137/61; TEMP 98.2
[2024-09-23] MEDS ORDERED: TAMS-35 PO (17:00)
[2024-09-23] MEDS ORDERED: LEVO500T91 PO (17:00)
[2024-09-23 17:01] VITALS: PULSE 81; RESP 15; O2SAT 95
[2024-09-23] MEDS: cefTRIAXone 1GM/50ML D5W 50 ML IV ONE (17:01)
[2024-09-25 11:07] LABS: PSA Free 0.25 ng/mL; Prostate Specific Antigen 0.8 ng/mL (0.0-4.0)
== END 2024-09-23 17:57 | disposition home or self-care (01) ==
LOC: ER 14:02
DX: N41.9 Inflammatory disease of prostate, unspecified (principal); I10 Essential (primary) hypertension; E11.9 Type 2 diabetes mellitus without complications; Z79.84 Long term (current) use of oral hypoglycemic drugs; Z79.899 Other long term (current) drug therapy; Z87.440 Personal history of urinary (tract) infections
CPT/HCPCS: 36415; 80053; 81001; 84154; 85025; 96365; 99284; J0696